=== PATIENT | female | born 1965 | race Hispanic/Latino ===

== ENCOUNTER → 2024-08-30 | Day surgery (SDC) | payer BC ==
[~2024-08-30] MED LIST: BUPIVACAINE LIPOSOME/PF 266 MG/20 ML IJ ONE; DEXAMETHASONE SOD PHOS INJ 4 MG/ML SDV ONE; FENTANYL CITRATE/PF 100MCG/2 ML INJ ONE; HYDROCODONE/APAP 7.5MG-325MG 1 EA TAB ONE; HYDROMORPHONE 2MG/ML ONE; LASIX20 MG PO; LIDOCAINE HCL 2% LOCAL INJ 5 ML SDV VIAL INJ ONE; LOSARTAN-HCTZ1 EAC1 PO; METOPROLOL SUCC50 MG PO; MIDAZOLAM HCL 2 MG/2 ML VIAL ONE; OMEPRAZOLE40 MG PO; ONDANSETRON HCL INJ 2MG/ML 2ML 2 MG/ML VIAL ONE; PROPOFOL IV EMULSION 10 MG/ML 20 ML VIAL ONE; SEVOFLURANE INHAL SOLN 250 ML PEN BTL ONE
[2024-08-30] MEDS: LACTATED RINGER'S 1,000 ML ONE (10:40)
[2024-08-30] MEDS: CEFAZOLIN SODIUM 2 GM ONE (10:40)
[2024-08-30 11:07] LABS: ANION GAP 15.1 mmol/L (8-16); CALCIUM 8.7 mg/dL (8.4-10.2); CREATININE, SERUM 0.62 mg/dL (0.57-1.11)
[2024-08-30 11:10] LABS: POTASSIUM 3.1 mmol/L (3.5-5.1)
[2024-08-30 13:55] VITALS: TEMP 97.2
[2024-08-30] MEDS: HYDROCODONE/APAP 7.5MG-325MG 1 EA TAB PO ONE (14:18)
[2024-08-30 14:30] VITALS: BP 151/75; PULSE 79; RESP 13; O2SAT 98
== END | disposition home or self-care (01) ==
LOC: OR 09:52
PROVIDERS: ATTEND Podiatrist Foot & Ankle Surgery
DX: M20.12 Hallux valgus (acquired), left foot (principal); I10 Essential (primary) hypertension; K21.9 Gastro-esophageal reflux disease without esophagitis; K58.9 Irritable bowel syndrome, unspecified; E66.01 Morbid (severe) obesity due to excess calories; Z01.810 Encounter for preprocedural cardiovascular examination; Z79.899 Other long term (current) drug therapy
CPT/HCPCS: 28296; 36415; 80048; 93005; C1713 ×3; C1762; C9290; J1100; J1170; J2003; J2250; J2405; J2704; J3010; J7121